=== PATIENT | female | born 1995 | race Hispanic/Latino ===

== ENCOUNTER 2017-12-11 03:05 | Emergency (ER) | payer SELFPAY ==
[2017-12-11 03:16] VITALS: RESP 18; TEMP 98.6; BMI 26.5
[2017-12-11] MEDS ORDERED: Oxycodone/Acetaminophen 5/325 mg Tab PO STA (03:25)
--- NOTE | 2017-12-11 03:26 | ED PDOC ---
Arrival/HPI - General Chief Complaint: Lower Extremity Problem/Injury Time Seen by Provider: 12/11/17 03:16 Historian: Patient - History of Present Illness Narrative History of Present Illness (Text): 12/11/17 03:23 A 22 year old female, with no significant past medical history, presents to the emergency department complaining of 3 day duration pain to both ankles. The patient states that she cannot walk or bare weight. The patient states that the pain has worsened tonight and is requesting medication. She notes that she did not take any medication at home to relieve her symptoms. The patient denies fevers, chills, headache, dizziness, chest pain, shortness of breath, dyspnea on exertion, cough, abdominal pain, nausea, vomiting, diarrhea, back pain, neck pain, urinary/bowel changes, or any other complaint. Time/Duration: Other (3 Days) Symptom Onset: Sudden Symptom Course: Unchanged Activities at Onset: Rest, Light Context: Home Past Medical History - Provider Review Nursing Documentation Reviewed: Yes - Infectious Disease Hx of Infectious Diseases: None - Reproductive Menopause: No - Psychiatric Hx Substance Use: No - Anesthesia Hx Anesthesia: No Family/Social History - Physician Review Nursing Documentation Reviewed: Yes Family/Social History: No Known Family HX Smoking Status: Never Smoked Hx Alcohol Use: No Hx Substance Use: No Allergies/Home Meds Allergies/Adverse Reactions: Allergies No Known Allergies Allergy (Verified 12/11/17 03:21) Review of Systems - Physician Review All systems were reviewed & negative as marked: Yes - Review of Systems Constitutional: absent: Fevers, Night Sweats Cardiovascular: absent: Chest Pain, NAGY Gastrointestinal: absent: Abdominal Pain, Stool Changes, Nausea, Vomiting Musculoskeletal: Other (Pain to both ankles. ). absent: Back Pain, Neck Pain Neurological: absent: Headache, Dizziness Physical Exam Vital Signs Reviewed: Yes Vital Signs Temp Pulse Resp BP Pulse Ox 12/11/17 03:16 98.6 F 84 18 114/61 97 Temperature: Afebrile Blood Pressure: Normal Pulse: Regular Respiratory Rate: Normal Appearance: Positive for: Well-Appearing, Non-Toxic, Comfortable Pain Distress: None Mental Status: Positive for: Alert and Oriented X 3 - Systems Exam Head: Present: Atraumatic, Normocephalic Pupils: Present: PERRL Extroacular Muscles: Present: EOMI Conjunctiva: Present: Normal Mouth: Present: Moist Mucous Membranes Neck: Present: Normal Range of Motion Respiratory/Chest: Present: Clear to Auscultation, Good Air Exchange. No: Respiratory Distress, Accessory Muscle Use Cardiovascular: Present: Regular Rate and Rhythm, Normal S1, S2. No: Murmurs Abdomen: Present: Normal Bowel Sounds. No: Tenderness, Distention, Peritoneal Signs Back: Present: Normal Inspection Upper Extremity: Present: Normal Inspection. No: Cyanosis, Edema Lower Extremity: No: Normal ROM (Pain with dorsiflexion of the foot. Tenderness to the achilles tendon on both legs. ) Neurological: Present: GCS=15, CN II-XII Intact, Speech Normal Skin: Present: Warm, Dry, Normal Color. No: Rashes Psychiatric: Present: Alert, Oriented x 3, Normal Insight, Normal Concentration Medical Decision Making ED Course and Treatment: 12/11/17 03:28 Impression: A 22 year old female presents to the emergency department complaining of 3 day duration bilateral ankle pain. Plan: -- Left and Right Foot and Ankle X-Rays -- Lower Extremity Ultrasound -- Motrin, Zofran, and Percocet -- Urinalysis -- Labs -- Reassess and disposition Progress Notes: 12/11/17 04:46: Foot and Ankle X-rays read and interpreted by me are normal. Ultrasound results are normal. - Lab Interpretations Lab Results: 12/11/17 03:41 12/11/17 03:41 Lab Results 12/11/17 03:41: Sodium 142, Potassium 4.0, Chloride 102, Carbon Dioxide 28, Anion Gap 16, BUN 10, Creatinine 0.6 L, Est GFR ( Amer) > 60, Est GFR ( Non-Af Amer) > 60, Random Glucose 89, Calcium 9.4, Total Bilirubin 0.4, AST 30, ALT 20, Alkaline Phosphatase 50, Total Protein 7.5, Albumin 4.2, Globulin 3.3, Albumin/Globulin Ratio 1.3 12/11/17 03:41: Urine Color Yellow, Urine Appearance Clear, Urine pH 6.5, Ur Specific [place] 1.020, Urine Protein Negative, Urine Glucose (UA) Negative, Urine Ketones Negative, Urine Blood Negative, Urine Nitrate Negative, Urine Bilirubin Negative, Urine Urobilinogen 0.2, Ur Leukocyte Esterase Negative 12/11/17 03:41: PT 11.7, INR 1.03 12/11/17 03:41: WBC 9.9, RBC 4.07, Hgb 12.7, Hct 37.1, MCV 91.2, MCH 31.2, MCHC 34.2, RDW 12.7, Plt Count 218, MPV 10.9, Gran % 71.9 H, Lymph % (Auto) 19.6 L, [place] % (Auto) 6.7 H, Eos % (Auto) 1.6, Baso % (Auto) 0.2, Gran # 7.13 H, Lymph # (Auto) 2.0, [place] # (Auto) 0.7 H, Eos # (Auto) 0.2, Baso # (Auto) 0.02, ESR Pending I have reviewed the lab results: Yes - RAD Interpretation Radiology Orders: 12/11/17 03:25 ANKLE LEFT 3 VIEWS ROUTINE [RAD] Stat ANKLE RIGHT 3 VIEWS ROUTINE [RAD] Stat FOOT LEFT 3 VIEWS ROUTINE [RAD] Stat FOOT RIGHT 3 VIEWS ROUTINE [RAD] Stat DUPLEX LOWER EXTRM VEIN BILAT [US] Stat - Medication Orders Current Medication Orders: Discontinued Medications Ibuprofen (Motrin Tab) 800 mg PO STAT STA Stop: 12/11/17 03:26 Last Admin: 12/11/17 03:41 Dose: 800 mg Ondansetron HCl (Zofran Odt) 8 mg PO STAT STA Stop: 12/11/17 03:26 Last Admin: 12/11/17 03:41 Dose: 8 mg Oxycodone/Acetaminophen (Percocet 5/325 Mg Tab) 2 tab PO STAT STA Stop: 12/11/17 03:26 Last Admin: 12/11/17 03:42 Dose: 2 tab [facility] Pain Assessment Document 12/11/17 03:42 CNR (Rec: 12/11/17 03:42 CNR [facility] [id number] Pain Reassessment Is this a pain reassessment? Yes Location Left, Right or Bilateral Bilateral Upper or Lower Lower Pain Location Body Site Leg Description Description Constant - Scribe Statement The provider has reviewed the documentation as recorded by the Scribe Jaclyn Ma Provider Scribe Attestation: All medical record entries made by the Scribe were at my direction and personally dictated by me. I have reviewed the chart and agree that the record accurately reflects my personal performance of the history, physical exam, medical decision making, and the department course for this patient. I have also personally directed, reviewed, and agree with the discharge instructions and disposition. Disposition/Present on Arrival - Present on Arrival Any Indicators Present on Arrival: No History of DVT/PE: No History of Uncontrolled Diabetes: No Urinary Catheter: No History of Decub. Ulcer: No History Surgical Site Infection Following: None - Disposition Have Diagnosis and Disposition been Completed?: Yes Diagnosis: Achilles tendinitis of both lower extremities Disposition Time: 04:56 Patient Plan: Discharge Patient Problems: Current Active Problems Problem Status Onset Achilles tendinitis of both lower extremities Acute Condition: GOOD Discharge Instructions (ExitCare): Achilles Tendinitis (ED) Additional Instructions: Yadira - Sorry that you are having so much pain, Your x-rays are normal, Your ultrasound is normal, You lab work is normal. You have tendonitis of the achillies tendon in both of your legs/feet. Rest and keep your feet elevated as much as possible. Please follow up with Orthopedics, Dr. Carolina Chaudhry, . is pest control applicator. Percocet is for unbearable pain, it will upset your stomach, Zofran OTC is for your upset stomach. Motrin is to help with the inflammation. The Medrol Dosepack decreases the inflammation as well, but in a different way. Return to us if any problems. Matthew- Dr. Huang Caro Referrals: PCP,NO [Primary Care Provider] - Follow up with primary Forms: [employer] ([place])
[2017-12-11 03:52] LABS: BASO # 0.02 K/mm3 (0.0-2.0); BASO % 0.2 % (0.0-3.0); EOS # 0.2 (0.0-0.7); EOS % 1.6 % (1.5-5.0); GRAN # 7.13 (1.4-6.5); GRAN % 71.9 % (50.0-68.0); HEMOGLOBIN 12.7 g/dL (12.0-16.0); LYMPH % 19.6 % (22.0-35.0); MEAN CELL VOLUME 91.2 fl (80.0-105.0); MEAN CORPUSCULAR HEMOGLOBIN 31.2 pg (25.0-35.0); MEAN CORPUSCULAR HGB CONC 34.2 g/dl (31.0-37.0); MEAN PLATELET VOLUME 10.9 fl (7.0-11.0); MONO # 0.7 (0.1-0.6); MONO % 6.7 % (1.0-6.0); RBC 4.07 10^6/uL (3.5-6.1); RED CELL DISTRIBUTION WIDTH 12.7 % (11.5-14.5); WHITE BLOOD COUNT 9.9 10^3/ul (4.5-11.0)
[2017-12-11 04:02] LABS: PH,URINE 6.5 (4.7-8.0); URINE BILIRUBIN NEGATIVE (NEGATIVE); URINE BLOOD NEGATIVE (NEGATIVE); URINE GLUCOSE (UA) NEGATIVE (NEGATIVE); URINE LEUKOCYTE ESTERASE NEGATIVE Leu/uL (NEGATIVE); URINE PROTEIN NEGATIVE mg/dL (<30 mg/dL); URINE UROBILINOGEN 0.2 E.U./dL (<1 E.U./dL)
[2017-12-11 04:10] LABS: URINE APPEARANCE CLEAR (CLEAR); URINE COLOR YELLOW (YELLOW)
[2017-12-11 04:11] LABS: INR 1.03 (0.93-1.08); PROTHROMBIN TIME 11.7 SECONDS (9.4-12.5)
[2017-12-11 04:16] LABS: ALB/GLOB RATIO 1.3 (1.1-1.8); ALBUMIN 4.2 g/dL (3.0-4.8); ALT/SGPT 20 U/L (7-56); AST/SGOT 30 U/L (14-36); BLOOD UREA NITROGEN 10 mg/dL (7-21); CALCIUM 9.4 mg/dL (8.4-10.5); GFR AFRICAN-AMERICAN > 60; GFR NON-AFRICAN AMERICAN > 60
[2017-12-11 05:37] VITALS: BP 118/72; PULSE 85; O2SAT 100
--- NOTE | 2017-12-11 09:23 | RAD ---
PROCEDURE: Right Ankle Radiographs. HISTORY: Pain to bottom of foot and achillies tendon COMPARISON: None FINDINGS: BONES: Normal. No fracture. JOINTS: Normal. No osteoarthritis. Ankle mortise maintained. Talar dome intact SOFT TISSUES: Normal. OTHER FINDINGS: None. IMPRESSION: Normal right ankle radiographs.
--- NOTE | 2017-12-11 09:24 | RAD ---
PROCEDURE: Left Foot Radiographs. HISTORY: Pain to bottom of foot and Achilles her tendon no history of trauma provided COMPARISON: None. FINDINGS: BONES: Normal. No fracture. JOINTS: Normal. SOFT TISSUES: Normal. OTHER FINDINGS: None. IMPRESSION: Normal left foot radiographs.
--- NOTE | 2017-12-11 09:24 | RAD ---
PROCEDURE: Left Ankle Radiographs. HISTORY: Pain to bottom of foot and Achilles tendon no history of trauma provided. COMPARISON: None FINDINGS: BONES: Normal. No fracture. JOINTS: Normal. No osteoarthritis. Ankle mortise maintained. Talar dome intact SOFT TISSUES: Normal. OTHER FINDINGS: None. IMPRESSION: Normal left ankle radiographs.
--- NOTE | 2017-12-11 09:25 | RAD ---
PROCEDURE: Right Foot Radiographs. HISTORY: Pain to bottom of foot and Achilles tendon no history of trauma provided COMPARISON: None. FINDINGS: BONES: Normal. No fracture. JOINTS: Normal. SOFT TISSUES: Normal. OTHER FINDINGS: None. IMPRESSION: Normal right foot radiographs.
--- NOTE | 2017-12-11 09:35 | US ---
HISTORY: Leg pain and swelling. Evaluate for DVT PHYSICIAN(S): John Paul Cho MD. TECHNIQUE: Duplex sonography and color-flow Doppler with graded compression were used to evaluate the deep venous systems of both lower extremities. FINDINGS: The visualized deep venous systems of both lower extremities are sonographically normal and compressible. Normal wave forms and augmentation are seen. There is no sonographic evidence for deep venous thrombosis in the visualized segments of both lower extremities. IMPRESSION: No sonographic evidence for deep venous thrombosis in the visualized segments of both lower extremities.
== END 2017-12-11 05:38 | disposition home or self-care (01) ==
LOC: ED 03:05
DX: M76.62 Achilles tendinitis, left leg (principal); M76.61 Achilles tendinitis, right leg

== ENCOUNTER 2018-02-18 18:53 | Emergency (ER) | payer SELFPAY ==
[2018-02-18 18:53] VITALS: BMI 24.2
[2018-02-18 19:36] VITALS: BP 109/70; RESP 18; TEMP 98.2
--- NOTE | 2018-02-18 19:56 | ED PDOC ---
Arrival/HPI - General Chief Complaint: Female Genitourinary Time Seen by Provider: 02/18/18 19:19 Historian: Patient - History of Present Illness Narrative History of Present Illness (Text): 02/18/18 19:49 22yr old female presents today with 3 day history of dysuria, urinary frequency. pt with hx of UTI in the past. pt states symptoms are similar. pt states during her last UTI symptoms were much worse. pt denies fever/chills. denies any abdominal pain. no chest pain or sob. no vomiting/diarrhea. no medications taken for pain at home. no vaginal discharge. no other complaints. Past Medical History - Provider Review Nursing Documentation Reviewed: Yes - Travel History Have you recently traveled outside [place] w/in the past 3 mons?: No - Infectious Disease Hx of Infectious Diseases: None - Cardiac Hx Cardiac Disorders: No Hx Hypertension: No - Pulmonary Hx Tuberculosis: No - Neurological HX Cerebrovascular Accident: No Hx Seizures: No - Hematological/Oncological Hx Cancer: No - Genitourinary/Gynecological Hx Sexually Transmitted Diseases: No - Psychiatric Hx Schizophrenia: Yes (As per boyfriend " her mom told me she is schizophrenic") Hx Substance Use: No - Anesthesia Hx Anesthesia: No Family/Social History - Physician Review Nursing Documentation Reviewed: Yes Family/Social History: Unknown Family HX Smoking Status: Never Smoked Hx Alcohol Use: No Hx Substance Use: No Allergies/Home Meds Allergies/Adverse Reactions: Allergies No Known Allergies Allergy (Verified 01/29/18 03:46) Review of Systems - Review of Systems Constitutional: absent: Fatigue, Fevers Respiratory: absent: SOB, Cough Cardiovascular: absent: Chest Pain, Palpitations Gastrointestinal: absent: Abdominal Pain, Constipation, Diarrhea, Nausea, Vomiting Genitourinary Female: Dysuria, Frequency. absent: Hematuria, Vaginal Discharge Musculoskeletal: absent: Arthralgias, Back Pain, Neck Pain Skin: absent: Rash, Pruritis Neurological: absent: Headache, Dizziness Psychiatric: absent: Anxiety, Depression Physical Exam Vital Signs Reviewed: Yes Vital Signs Temp Pulse Resp BP Pulse Ox 02/18/18 19:30 98.2 F 98 H 18 109/70 100 Temperature: Afebrile Blood Pressure: Normal Pulse: Regular Respiratory Rate: Normal Appearance: Positive for: Well-Appearing, Non-Toxic, Comfortable Pain Distress: None Mental Status: Positive for: Alert and Oriented X 3 - Systems Exam Head: Present: Atraumatic Mouth: Present: Moist Mucous Membranes Neck: Present: Normal Range of Motion Respiratory/Chest: Present: Clear to Auscultation, Good Air Exchange. No: Respiratory Distress, Accessory Muscle Use Cardiovascular: Present: Regular Rate and Rhythm, Normal S1, S2. No: Murmurs Abdomen: No: Tenderness, Distention, Peritoneal Signs, Rebound, Guarding Back: Present: Normal Inspection. No: CVA Tenderness, Midline Tenderness, Paraspinal Tenderness Upper Extremity: Present: Normal ROM Lower Extremity: Present: Normal ROM Neurological: Present: GCS=15, Speech Normal Skin: Present: Warm, Dry, Normal Color. No: Rashes Psychiatric: Present: Alert, Oriented x 3 Medical Decision Making ED Course and Treatment: 02/18/18 19:57 Patient is nontoxic well-appearing in no distress with stable vital signs Urinalysis: + large leukocytes macrobid/pyridium po Urine culture: pending advised follow up with the primary care physician within the next 2 days. advised immediate return if symptoms worsen,persist or if new symptoms develop. Patient verbalizes understanding of discharge instructions and need for immediate followup. all aspects of this case were discussed the attending of record. Impression: Urinary tract infection Motrin every 6 hours as needed for pain Macrobid; 1 tablet twice daily x 10 days. pyridium; 1 tablet twice daily x 3 days. Followup with primary care physician within the next 2 days Follow up with the urologist for the next 2 days Return if symptoms worsen persist or if new symptoms develop - Lab Interpretations Lab Results: Lab Results 02/18/18 19:57: Urine Color Yellow, Urine Appearance Cloudy, Urine pH 7.0, Ur Specific [place] 1.025, Urine Protein 100 H, Urine Glucose (UA) Negative, Urine Ketones Negative, Urine Blood Small H, Urine Nitrate Negative, Urine Bilirubin Negative, Urine Urobilinogen 1.0 H, Ur Leukocyte Esterase Large H, Urine RBC Pending, Urine WBC Pending Disposition/Present on Arrival - Present on Arrival Any Indicators Present on Arrival: No History of DVT/PE: No History of Uncontrolled Diabetes: No Urinary Catheter: No History of Decub. Ulcer: No History Surgical Site Infection Following: None - Disposition Have Diagnosis and Disposition been Completed?: Yes Diagnosis: Urinary tract infection Disposition: HOME/ ROUTINE Disposition Time: 20:02 Patient Plan: Discharge Patient Problems: Current Active Problems Problem Status Onset Urinary tract infection Acute Condition: GOOD Discharge Instructions (ExitCare): Urinary Tract Infections in Adults Additional Instructions: Motrin every 6 hours as needed for pain Macrobid; 1 tablet twice daily x 10 days. pyridium; 1 tablet twice daily x 3 days. Followup with primary care physician within the next 2 days Follow up with the urologist for the next 2 days Return if symptoms worsen persist or if new symptoms develop Prescriptions: Ibuprofen [Motrin Tab] 400 mg PO Q6H PRN #20 tab PRN Reason: Pain, Mild (1-3) Nitrofurantoin Macrocrystals [Macrobid] 100 mg PO BID #20 cap Phenazopyridine [Phenazopyridine HCl] 200 mg PO BID #6 tab Referrals: Kellie Lim MD [Staff Provider] - Follow up with primary Drew Ortiz MD [Staff Provider] - [place] up with primary [facility] [place] - Follow up with primary Forms: [employer] ([place]azi), WORK NOTE
[2018-02-18 20:04] LABS: URINE BILIRUBIN NEGATIVE (NEGATIVE); URINE BLOOD SMALL (NEGATIVE); URINE GLUCOSE (UA) NEGATIVE (NEGATIVE); URINE LEUKOCYTE ESTERASE LARGE Leu/uL (NEGATIVE); URINE PROTEIN 100 mg/dL (<30 mg/dL)
[2018-02-18 20:05] LABS: URINE APPEARANCE CLOUDY (CLEAR); URINE COLOR YELLOW (YELLOW)
[2018-02-18 20:37] LABS: URINE BACTERIA LARGE (NEG); URINE WBC 25 - 30 /hpf (0-6)
[2018-02-18 21:13] VITALS: PULSE 81; O2SAT 98
== END 2018-02-18 21:14 | disposition home or self-care (01) ==
LOC: ED 18:53
DX: N39.0 Urinary tract infection, site not specified (principal)